=== PATIENT | male | born 1950 | race Caucasian/White ===

== ENCOUNTER → 2020-03-19 | Outpatient (CLI) | payer MEDICARE ==
--- NOTE | 2020-04-09 07:07 | SLEEPHOME ---
DATE: 03/19/2020 ORDERED BY: Brennon Link MD Diagnostic home sleep testing was performed due to concern for the obstructive sleep apnea syndrome. For testing, a nocturnal T3 respiratory monitoring device was used. Continuous record was made of pulse, oxygen saturation, air flow, chest and abdominal strain, and body position. Nine hours and 59 minutes of data were reviewed. There were 8 hours and 33 minutes marked as time in bed. During the interval marked time in bed, there were 342 respiratory events identified of 10 seconds in duration or greater for a respiratory event index of 39.9. The events were primarily obstructive. Eleven mixed and central apneas were seen. Baseline pulse rate 57, pulse rate range 47-78, baseline saturation 93%, saturations fell to 83%. Testing was performed in both the supine and non-supine positions. IMPRESSION: Abnormal home sleep testing with repetitive respiratory events and oxygen desaturations to 83% with a respiratory event index of 39.9 is consistent with the obstructive sleep apnea syndrome. RECOMMENDATION: The patient should be encouraged to undergo a formal sleep evaluation. [facility]
== END ==
LOC: M SLEEP HO 09:11
PROVIDERS: ATTEND Internal Medicine Cardiovascular Disease
DX: R06.83 Snoring (principal)